=== PATIENT | male | born 1940 | race Caucasian/White ===

== ENCOUNTER 2020-01-03 21:21 | Inpatient (IN) | payer MEDICARE, SELFPAY ==
--- NOTE | ~2020-01-03 | XR_ITS ---
EXAMINATION: XR chest 1V portable DATE: 01/03/2020 23:28 INDICATION: Leukocytosis TECHNIQUE: frontal view of the chest was obtained. COMPARISON: Chest radiograph dated 01/21/2019 FINDINGS: Chronic elevation of the left hemidiaphragm. Lungs are clear with no focal airspace opacities, pleura l effusion, pulmonary edema or pneumothorax. Cardiomediastinal silhouette is normal. There are bridgi ng osteophytes at multiple levels in the spine, consistent with diffuse idiopathic skeletal hyperosto sis (DISH). IMPRESSION: 1. No acute cardiopulmonary disease. Reviewed, dictated and finalized at location A. AISER PERSONAL PROPERTY
--- NOTE | ~2020-01-03 | XR_ITS ---
XR thoracic spine 3V 01/05/2020 16:41 Indication: Mid-low back pain Procedure: 3 views of the thoracic spine Comparison: No prior studies for comparison. Findings: There is dextroscoliosis of the thoracic spine. There is mild-moderate thoracic spondylosis . No acute fracture or traumatic malalignment. No significant paraspinal soft tissue abnormality. Ped icles intact. Impression: 1: Mild thoracic spondylosis for age with dextroscoliosis. Reviewed, dictated and finalized at location A. TEGIC PLANNING SPECIALIST Impression: 1: Mild thoracic spondylosis for age with dextroscoliosis.
--- NOTE | ~2020-01-03 | CT_ITS ---
EXAMINATION: CT thoracic lumbar wo con EXAM DATE: 01/06/2020 16:03 INDICATION: Thoracolumbar pain. TECHNIQUE: Spiral CT thoracic lumbar wo con was performed without contrast. Axial, coronal and sagi ttal images thoracic spine were reviewed. Axial, coronal and sagittal images of the lumbar spine were reviewed. The dose-length product (DLP) for this examination was 2167.42 mGy-cm. The exposure was tailored according to patient size (auto mA exposure control), and iterative reconstruction (ASIR) wa s used as additional dose reduction technique. There is no prior study for comparison. FINDINGS: Patient has lower thoracic diffuse idiopathic skeletal hyperostosis (DISH). There is mild spine curvature which could be positional. There are no acute fractures identified. There are no bon y erosions identified. Region of vague sclerosis in the left iliac crest is unchanged correlating to a CT abdomen pelvis from 2016. Paraspinal soft tissue is unremarkable. There is no spondylolysis. The thoracolumbar vertebral bodies are aligned. Moderate to severe right T5-6 and T4-5 neural foraminal stenosis. Mild to moderate lumbar neural foraminal stenosis. No spondylolysis. Thoracic and lumbar ce ntral canal appears widely patent. There is moderate to severe facet arthropathy at L4-5 and L5-S1. O therwise relatively mild thoracal lumbar facet arthropathy. IMPRESSION: 1. No acute thoracolumbar findings. 2. Diffuse idiopathic skeletal hyperostosis. 3. T4-5 and 5-6 moderate to severe right neural foraminal stenosis, most narrowed levels. 4. Moderate to severe lower lumbar facet arthropathy. Reviewed, dictated and finalized at location A. GER TRAINING IMPRESSION: 1. No acute thoracolumbar findings. 2. Diffuse idiopathic skeletal hyperostosis. 3. T4-5 and 5-6 moderate to severe right neural foraminal stenosis, most narro wed levels. 4. Moderate to severe lower lumbar facet arthropathy.
--- NOTE | ~2020-01-03 | XR_ITS ---
EXAMINATION: XR abdomen/kub 1V DATE: 01/03/2020 23:28 INDICATION: Back pain and hematuria TECHNIQUE: A supine view of the abdomen on 2 radiographs was obtained. COMPARISON: CT dated 01/03/2020 FINDINGS: Normal bowel gas pattern with no dilated bowel to suggest obstruction. Multiple calcified gallstones in the right upper quadrant. Multiple phleboliths in the pelvis. No evident urolithiasis. Elevation o f the left hemidiaphragm. Visualized lung bases are clear. Severe lower lumbar facet osteoarthritis. IMPRESSION: 1. Cholelithiasis. Reviewed, dictated and finalized at location A. H HAND IMPRESSION: 1. Cholelithiasis.
--- NOTE | ~2020-01-03 | XR_ITS ---
XR lumbar spine 2-3V 01/05/2020 16:41 Indication: Low back pain Procedure: 3 views lumbar spine Comparison: No prior studies for comparison. Findings: Mild levocurvature of the lumbar spine. Osteopenia. There is loss of disc height at L5-S1. There is facet hypertrophy at L4-5 and L5-S1. There is grade 1 degenerative spondylolisthesis at L4-5 . No acute fracture or traumatic malalignment. Pedicles intact. Impression: 1: Moderate lumbar spondylosis. Reviewed, dictated and finalized at location A. RENTAL CLERK Impression: 1: Moderate lumbar spondylosis.
--- NOTE | ~2020-01-03 | CT_ITS ---
EXAMINATION: CT abdomen pelvis wo con DATE: 01/03/2020 23:22 INDICATION: Back pain and hematuria. TECHNIQUE: Computed tomography (CT) of the abdomen and pelvis was performed without intravenous contr ast. Automated exposure control and iterative reconstruction technique were employed. The dose-length product was 674.05 mGy-cm. COMPARISON: 11/15/2016 FINDINGS: Minimal dependent atelectasis in the lingula and bilateral lower lobes. Heart size is normal. Atheros clerotic coronary artery calcifications. Aortic valve calcific lesion. No pericardial or pleural effu rohan. Bilateral gynecomastia. Small sliding-type hiatal hernia. Liver, spleen, pancreas, left kidney and bilateral adrenal glands are normal. Several calcified gallstones in the dependent aspect of the normal-appearing gallbladder. No pericholecystic inflammatory stranding to suggest acute cholecystiti s. Multiple right renal cysts, the largest measuring 4.7 cm. Prominent diverticulosis along the desce nding and sigmoid colon without adjacent inflammatory change to suggest diverticulitis. Small bowel a nd appendix are normal. Prominent wall thickening within the partially decompressed bladder. No free intraperitoneal gas or fluid. Multiple phleboliths in the pelvis. No pathologically enlarged abdomina l or pelvic lymphadenopathy. Mild scattered degenerative skeletal changes. There are bridging osteoph ytes at multiple levels in the spine, consistent with diffuse idiopathic skeletal hyperostosis (DISH) . IMPRESSION: 1. Prominent bladder wall thickening although evaluation is limited by incomplete distention and lack of intravenous contrast as likely related to cystitis which could be either acute or chronic. Differ ential would also include less likely malignancy. 2. Cholelithiasis. 3. Diverticulosis. 4. Small sliding-type hiatal hernia. Reviewed, dictated and finalized at location A. POLLUTION SPECIALIST IMPRESSION: 1. Prominent bladder wall thickening although evaluation is limited by incomple te distention and lack of intravenous contrast as likely related to cystitis wh ich could be either acute or chronic. Differential would also include less like ly malignancy. 2. Cholelithiasis. 3. Diverticulosis. 4. Small sliding-type hiatal hernia.
[2020-01-03 21:21] VITALS: BP 153/87; PULSE 91; RESP 18; TEMP 37.3; O2SAT 95
--- NOTE | 2020-01-03 21:24 | ED.BACK ---
HPI - Back Pain/Injury General Chief Complaint: Back Pain/Injury Stated Complaint: back pain Time Seen by Provider: 01/03/20 21:23 Source: patient and family Mode of arrival: EMS Limitations: dementia History of Present Illness HPI Narrative: The pt is an 79 y/o male who presents to the ED, via EMS, c/o lower back pain onset today. Pt's family states that pt has a PMHx of chronic back pain, and was receiving shots and medications for some time. She states that the pt only uses Tylenol now. She states that the pt has experienced some burning urination as well, as well as that the pt experienced similar symptoms with a UTI. Pt's notes that the pt has experienced some ABD bloating today. The pt denies N/V, ABD pain, and fever. His notes that the pt has a PMHx of urinary incontinence, but states that the pt has begun to experience fecal incontinence over the last 4-5 months. She notes that the pt has a PMHx of sepsis, UTI, NC, and dementia. The HPI is limited due to dementia. MD elicited complaint: back pain Pertinent past history: prior back pain (Chronic back pain) Similar Symptoms Previously: Yes Location: lumbar spine (Lower back) Associated symptoms: fecal incontinence (Onset 4-5 months ago, per pt's family), dysuria (Burning urination (Per pt's family)) and other (ABD bloating (Per pt's family)) Related Data Home Medications Medication Instructions Recorded Confirmed aspirin [Aspir-Low] 01/03/20 metoprolol succinate 25 mg PO DAILY 01/03/20 rosuvastatin [Crestor] 10 mg PO DAILY 01/03/20 ticagrelor [Brilinta] 90 mg PO Q12H 01/03/20 Allergies Allergy/AdvReac Type Severity Reaction Status Date / Time clopidogrel Allergy Severe HIVES Verified 11/14/16 22:43 Penicillins Allergy Unknown Verified 11/14/16 22:43 Review of Systems Review of Systems: ROS unobtainable: other (ROS limited due to dementia.) Constitutional: Constitutional: Denies fever(s) Gastrointestinal: Gastrointestinal: Denies abdominal pain, Reports bloating (Per pt's family), Reports fecal incontinence (Onset 4-5 months ago, per pt's family), Denies nausea and Denies vomiting Genitourinary: Genitourinary: Reports dysuria (Burning urination (Per pt's family)) Musculoskeletal: Musculoskeletal: Reports back pain (Lower) PMFSH Past Medical History Medical History (Updated 01/04/20 @ 00:48 by Leonora Uribe MD) Anxiety Arthritis Bilateral cataracts CAD (coronary artery disease) Chronic back pain Dementia GERD (gastroesophageal reflux disease) HTN (hypertension) Myocardial infarction Sepsis Urinary incontinence UTI (urinary tract infection) Surgical History Surgical History (Updated 01/03/20 @ 21:34 by Gurmeet Carmichael) Hx of cardiac cath S/P coronary artery stent placement x3 Social History Social History (Updated 01/03/20 @ 21:34 by Gurmeet Carmichael) Smoking status: Never smoker Gender identity (if verbalized by the patient): Male Exam Narrative: Exam Narrative: GENERAL: Well-appearing, well-nourished, and in no acute distress. HEAD: Normocephalic, atraumatic EYES: PERRLA and EOMI, conjunctiva clear without discharge THROAT:Mucous membranes moist, NECK: Supple, without lymphadenopathy or mass RESPIRATORY: No respiratory distress, Airway patent, Respirations non-labored, Clear to auscultation without rales, rhonchi or wheeze HEART: Regular rate and rhythm. No murmur heard. Normal peripheral pulses. ABDOMEN: Soft, nontender, nondistended, normal active bowel sounds. No masses. No rebound or guarding, No organomegaly. EXTREMITIES: No edema, able to move all extremities, can bend both legs without difficulty or pain . But only able to lift off bed slightly SKIN: Warm, dry, normal color without rash NEURO: Alert and oriented x person, place and month. CN 2-12 grossly intact. No focal deficits. PSYCH: Normal mood and affect. Course Reevaluation(s) Reevaluation #1: Patient lives at home with
[2020-01-03 21:46] LABS: Basophils Percent Auto 0.2 % (0.2-1.2); Eosinophils Percent Auto 0.1 % (0-4.4); Hematocrit 46.5 % (42.0-52.0); Hemoglobin 15.3 g/dL (14.0-18.0); Immature Granulocyte Absolute 0.08 K/mm3 (0.00-0.031); Immature Granulocyte Percent A 0.5 % (0-0.5); Lymphocytes Absolute Auto 0.88 K/mm3 (0.9-3.2); Lymphocytes Percent Auto 5.5 % (18.3-44.2); Mean Corpuscular HGB Conc 32.9 g/dl (32-36); Mean Corpuscular Hemoglobin 29.7 pg (26-34); Mean Corpuscular Volume 90.3 fl (80-100); Mean Platelet Volume 9.7 fl (7.4-10.4); Monocytes Absolute Auto 1.3 K/mm3 (0.1-0.6); Monocytes Percent Auto 8.1 % (2.6-8.5); Neutrophils Absolute Auto 13.8 K/mm3 (1.3-6.7); Neutrophils Percent Auto 85.6 % (45.5-73.1); Platelet Count Result 279 k/mm3 (150-375); Red Blood Count 5.15 M/mm3 (4.6-6.20); Red Cell Distribution Width 13.2 % (11.5-14.5); White Blood Count 16.1 K/mm3 (4.5-10.0)
[2020-01-03 21:57] LABS: Blood Urea Nitrogen 9 mg/dL (9-20); Calcium 9.1 mg/dL (8.4-10.2); Carbon Dioxide 27 mmol/L (22-30); Chloride 97 mmol/L (98-107); Estimated Glomerular Filt Rate > 60; Glucose 127 mg/dL (75-110); Sodium 137 mmol/L (137-145)
[2020-01-03 22:46] VITALS: BP 159/94; PULSE 88; RESP 18; O2SAT 97
[2020-01-03 22:57] LABS: Add Urine Microscopic? YES; Appearance Urine Cloudy (Clear); Bilirubin Urine Negative (Negative); Blood Urine 3+ (Negative); Color Urine Yellow (Yellow); Glucose Urine UA Negative (Negative); Ketones Urine Negative (Negative); Leukocyte Esterase Ur 1+ LEU/UL (Negative); Nitrate Urine Negative (Negative); Protein Urine Negative (Negative); RBC Urine 21-50 /hpf (0-2); Specific Grav Ur 1.013 (1.001-1.035); Urobilinogen Urine Negative mg/dL (<2.0); WBC Urine 51-75 /hpf
--- NOTE | 2020-01-03 23:14 | PC.NURSE ---
Pt to CT at this time.
[2020-01-04] MEDS: ONDANSETRON INJ 4 MG/2 ML VIAL IV PUSH (00:54)
[2020-01-04] MEDS: MORPHINE SULFATE 2 MG/ML INJ IV PUSH (00:56)
[2020-01-04 00:57] VITALS: BP 126/58; PULSE 87; RESP 16; O2SAT 98
--- NOTE | 2020-01-04 01:36 | ADMGEN ---
This patient, Tate Atkins Jr., was admitted to 2 Medical Room 260-01. Patient/family oriented to hospital policies and general routines including ID bracelet, bed and alarms, visiting hours, pain management, procedures, bathroom and other care routines, personal items, smoking policy, room service/diet, and visiting hours. Valuables list has been completed. Information on how to activate the Rapid Response Team has been discussed. Patient/Family are encouraged to report perceived risks to care and to ask questions if they do not understand what they are told or what they should do.
[2020-01-04 01:40] VITALS: BMI 29.2
[2020-01-04 01:41] VITALS: BP 124/48; PULSE 85; RESP 18; TEMP 36.6; O2SAT 94
[2020-01-04 06:00] VITALS: BP 120/58; PULSE 74; RESP 18; TEMP 36.3; O2SAT 97
[2020-01-04 08:00] VITALS: PULSE 74; RESP 18; O2SAT 97
[2020-01-04] MEDS: TICAGRELOR 90 MG TABLET PO ×2 (10:04→21:29)
[2020-01-04] MEDS: METOPROLOL SUCCINATE EXT REL 25 MG TABCR PO (10:04)
[2020-01-04] MEDS: ASPIRIN 81 MG ENTERIC TABLET PO (10:05)
--- NOTE | 2020-01-04 10:11 | PM.IMHP ---
H&P: HPI History of Present Illness Chief complaint: weakness, dysuria Narrative: Date of Service 01/04/20 This supervising physician for this history and physical is Dr. Fox. Tate Atkins Jr. is an 79 year old male with past medical history of coronary artery disease with MD January 2019, hypertension, osteoarthritis with chronic lower back pain, dementia with chronic urinary and fecal incontinence who presented to the ED for evaluation of back pain. He does not offer much history due to his dementia and much of this history is obtained from his at the bedside. She knows that he has had low back pain for years and used to receive injections, recently had only been using Tylenol for pain relief. She noted that his back pain became worse in the last 3 days and he was unable to stand up out of a chair to use his walker, so EMS was activated. She notes that he has been incontinent of urine for quite some time but most recently has been complaining of burning with urination. She denies noticing any blood in his urine. He has been incontinent of stool for at least 4 months per the . He denies any numbness or tingling to any extremities. He denies any chest pain, shortness of breath, or calf tenderness. He reports some nasal congestion and productive cough in the last week. He denies any nausea, vomiting, constipation, diarrhea, hematochezia, melena, or hematemesis. reports no fevers at home. Routine labs are grossly normal aside from leukocytosis with WBC 16,000. Urinalysis shows 51-75 WBC, 1+ leukocyte esterase, 21-50 RBC. Urine cultures were obtained and he was started on IV Rocephin in the ED. CT abdomen/pelvis shows prominent bladder wall thickening which could be consistent with cystitis. The patient is admitted to observation for suspected urinary tract infection and generalized weakness. His is unsure if it is safe for her to care for him at home at this time. Review of Systems Review of Systems: Narrative: Review of systems is limited due to his dementia, although he offers no complaints other than lower back pain with movement. 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 Sepsis Urinary incontinence UTI (urinary tract infection) Surgical History Surgical History Hx of cardiac cath S/P coronary artery stent placement Emergent cardiac catheterization by Dr Rogel 01/21/19 with 2 stents to right coronary artery. Family History Family History (Updated 01/04/20 @ 10:57 by Danielle Maki PA-C) Father CHF (congestive heart failure) Sibling Acute myocardial infarction Breast cancer Mother History of blood clots Grandparent Cerebrovascular accident Social History Social History (Updated 01/04/20 @ 10:59 by Danielle Maki PA-C) Social History: Mr. 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 He denies alcohol use. Never smoker, no other substance use. He mostly uses a walker to ambulate at home. His primary care provider is Dr Tate Garcia in [facility] and he follows with Dr Rogel as well. He wishes to be full code status. Smoking status: Never smoker Alcohol intake: never Substance use: never Gender identity (if verbalized by the patient): Male Spiritual care concerns: No Agree to blood products: No Meds Home Medications and Allergies Home Medications Medication Instructions Recorded Confirmed Type aspirin [Aspir-Low] 81 mg PO DAILY 01/03/20 01/04/20 History metoprolol succinate 25 mg PO DAILY 01/03/20 01/04/20 Histor
[2020-01-04 10:55] LABS: Hemoglobin 13.6 g/dL (14.0-18.0); Mean Corpuscular HGB Conc 33.2 g/dl (32-36); Mean Corpuscular Volume 90.3 fl (80-100); Mean Platelet Volume 10.1 fl (7.4-10.4); Platelet Count Result 234 k/mm3 (150-375); Red Blood Count 4.54 M/mm3 (4.6-6.20); Red Cell Distribution Width 13.4 % (11.5-14.5); White Blood Count 15.8 K/mm3 (4.5-10.0)
[2020-01-04 11:09] LABS: Alanine Aminotransferase 13 U/L (4-50); Albumin Level 3.6 g/dL (3.5-5.1); Alkaline Phosphatase 67 U/L (38-126); Aspartate Amino Transferase 22 U/L (17-59); Bilirubin,Total 0.6 mg/dL (0.2-1.3); Blood Urea Nitrogen 8 mg/dL (9-20); Calcium 8.6 mg/dL (8.4-10.2); Carbon Dioxide 29 mmol/L (22-30); Chloride 97 mmol/L (98-107); Estimated CRCL calculation 64 ml/min; Estimated Glomerular Filt Rate > 60; Glucose 123 mg/dL (75-110); Magnesium 2.1 mg/dL (1.6-2.3); Phosphorus 2.6 mg/dL (2.5-4.5); Potassium 3.9 mmol/L (3.4-5.0); Sodium 134 mmol/L (137-145)
[2020-01-04 16:00] VITALS: BP 128/51; PULSE 78; RESP 16; TEMP 36.7; O2SAT 97
[2020-01-04] MEDS: ROSUVASTATIN 10 MG TABLET PO (16:45)
[2020-01-04 21:48] VITALS: BP 101/37; PULSE 72; RESP 16; TEMP 37.2; O2SAT 100
[2020-01-05 05:24] LABS: Basophils Percent Auto 0.3 % (0.2-1.2); Eosinophils Absolute Auto 0.1 K/mm3 (0-0.3); Eosinophils Percent Auto 0.5 % (0-4.4); Hematocrit 43.3 % (42.0-52.0); Hemoglobin 13.5 g/dL (14.0-18.0); Immature Granulocyte Absolute 0.04 K/mm3 (0.00-0.031); Immature Granulocyte Percent A 0.4 % (0-0.5); Lymphocytes Absolute Auto 1.22 K/mm3 (0.9-3.2); Mean Corpuscular HGB Conc 31.2 g/dl (32-36); Mean Corpuscular Hemoglobin 29.9 pg (26-34); Mean Platelet Volume 10.1 fl (7.4-10.4); Monocytes Absolute Auto 1.1 K/mm3 (0.1-0.6); Monocytes Percent Auto 9.5 % (2.6-8.5); Neutrophils Absolute Auto 8.7 K/mm3 (1.3-6.7); Neutrophils Percent Auto 78.3 % (45.5-73.1); Platelet Count Result 201 k/mm3 (150-375); Red Blood Count 4.51 M/mm3 (4.6-6.20); Red Cell Distribution Width 13.3 % (11.5-14.5); White Blood Count 11.1 K/mm3 (4.5-10.0)
[2020-01-05 05:57] VITALS: BP 127/59; PULSE 70; RESP 16; TEMP 36.9; O2SAT 96
[2020-01-05 07:38] LABS: Blood Urea Nitrogen 8 mg/dL (9-20); Calcium 8.6 mg/dL (8.4-10.2); Carbon Dioxide 27 mmol/L (22-30); Chloride 96 mmol/L (98-107); Estimated CRCL calculation 64 ml/min; Estimated Glomerular Filt Rate > 60; Glucose 113 mg/dL (75-110); Magnesium 2.2 mg/dL (1.6-2.3); Potassium 3.9 mmol/L (3.4-5.0); Sodium 135 mmol/L (137-145)
[2020-01-05 10:04] VITALS: PULSE 92
[2020-01-05] MEDS: ASPIRIN 81 MG ENTERIC TABLET PO (10:04)
[2020-01-05] MEDS: METOPROLOL SUCCINATE EXT REL 25 MG TABCR PO (10:04)
[2020-01-05] MEDS: TICAGRELOR 90 MG TABLET PO ×2 (10:05→22:13)
[2020-01-05 14:00] VITALS: BP 112/53; PULSE 72; RESP 18; TEMP 37.2; O2SAT 95
[2020-01-05] MEDS: polyethylene glycoL 3350 17 GM POWD.PACK PO (14:38)
[2020-01-05] MEDS: BISACODYL 5 MG TABLET EC PO (14:38)
--- NOTE | 2020-01-05 17:53 | PM.IMPN ---
Progress Note: A&P Assessment and Plan (1) Weakness: Code(s): R53.1 - Weakness Status: Acute Assessment and Plan: [place] to be secondary to age, deconditioning, back pain and acute infection. PT/OT. After long discussion with patient's , discharge dispo is [facility]. Awaiting authorization for [facility]. (2) UTI (urinary tract infection): Qualifiers: Urinary tract infection type: acute cystitis Hematuria presence: with hematuria Qualified Code(s): N30.01 - Acute cystitis with hematuria Code(s): N39.0 - Urinary tract infection, site not specified Status: Acute Assessment and Plan: Urine culture growing E coli. Continue IV rocephin (day 3) with sensitivities pending. Leukocytosis improved, afebrile. (3) Chronic back pain: Qualifiers: Back pain location: low back pain Back pain laterality: bilateral Sciatica presence: unspecified whether sciatica present Qualified Code(s): M54.5 - Low back pain; G89.29 - Other chronic pain Code(s): M54.9 - Dorsalgia, unspecified; G89.29 - Other chronic pain Status: Acute Assessment and Plan: Acute on chronic exacerbation of lower back pain. Continue tylenol as his notes he had trouble with narcotics in the past. XR of thoracic and lumbar spine shows moderate lumbar spondylosis, mild thoracic spondylosis with dextroscoliosis; no acute findings. No focal neurological symptoms. (4) CAD (coronary artery disease): Qualifiers: Coronary Disease-Associated Artery/Lesion type: [place] artery [place] vs. transplanted heart: [place] heart Associated angina: without angina Qualified Code(s): I25.10 - Atherosclerotic heart disease of [place] coronary artery without angina pectoris Code(s): I25.10 - Atherosclerotic heart disease of [place] coronary artery without angina pectoris Status: Chronic Assessment and Plan: With history of STEMI s/p 2 sents in 01/2019. Continue home metorpolol and brilinta. Follows with Dr Rogel. Stable, no chest pain. (5) HTN (hypertension): Qualifiers: Hypertension type: essential hypertension Qualified Code(s): I10 - Essential (primary) hypertension Code(s): I10 - Essential (primary) hypertension Status: Chronic Assessment and Plan: Stable, continue home metoprolol and monitor BP. (6) Dementia: Qualifiers: Dementia type: unspecified type Dementia behavioral disturbance: without behavioral disturbance Qualified Code(s): F03.90 - Unspecified dementia without behavioral disturbance Code(s): F03.90 - Unspecified dementia without behavioral disturbance Status: Chronic Assessment and Plan: Appears to be at his baseline, stable. at the bedside. Subjective Date/time seen: 01/05/20 1400 Interval history: Mr. Atkins is an 79yo M admitted for UTI and weakness. He notes significant back pain when trying to get out of chair with PT today. Per RN, he was hollering out while attempting to stand. PT notes it took 10 attempts to get him out of the chair max assist. Detailed discussion was held with patient and his at bedside regarding his safety and discharge planning. His is hesitant to go to SNF but it was discussed that it is not felt he would be safe to discharge home. She agrees that she would not be able to lift him from a chair. Review of systems is limited due to the patient's dementia however he offers no complaints. His notes he is still having burning with urination. He has been incontinent of urine for years and incontinent of stool over the last 4-5 months, per the . Exam Narrative: Exam Narrative: General: Male resting supine in bed in no acute distress. HEENT: Normocephalic, atraumatic, EOMI, PE
--- NOTE | 2020-01-05 18:00 | PC.NURSE ---
Patient states he is having burning and discomfort with urination. requesting something for pain. Called Dr. Fox and discussed with him. Orders received for prn Tylenol.
[2020-01-05] MEDS: ROSUVASTATIN 10 MG TABLET PO (18:14)
[2020-01-05] MEDS: ACETAMINOPHEN 325 MG TABLET 650 MG PO (18:35)
[2020-01-05 22:11] VITALS: BP 137/61; PULSE 82; RESP 16; TEMP 36.5; O2SAT 96
[2020-01-06 05:50] LABS: Hematocrit 39.4 % (42.0-52.0); Mean Corpuscular Hemoglobin 29.5 pg (26-34); Mean Corpuscular Volume 89.5 fl (80-100); Platelet Count Result 238 k/mm3 (150-375); White Blood Count 8.6 K/mm3 (4.5-10.0)
[2020-01-06 06:00] LABS: Blood Urea Nitrogen 10 mg/dL (9-20); Calcium 8.5 mg/dL (8.4-10.2); Carbon Dioxide 30 mmol/L (22-30); Chloride 97 mmol/L (98-107); Estimated CRCL calculation 52 ml/min; Estimated Glomerular Filt Rate > 60; Glucose 115 mg/dL (75-110); Potassium 3.8 mmol/L (3.4-5.0); Sodium 134 mmol/L (137-145)
[2020-01-06 06:07] VITALS: BP 139/72; PULSE 95; RESP 18; TEMP 36.2; O2SAT 91
[2020-01-06 08:53] VITALS: PULSE 95
[2020-01-06] MEDS: ASPIRIN 81 MG ENTERIC TABLET PO (08:53)
[2020-01-06] MEDS: TICAGRELOR 90 MG TABLET PO ×2 (08:53→21:41)
[2020-01-06] MEDS: METOPROLOL SUCCINATE EXT REL 25 MG TABCR PO (08:53)
[2020-01-06] MEDS: polyethylene glycoL 3350 17 GM POWD.PACK PO (08:54)
[2020-01-06] MEDS: BISACODYL 5 MG TABLET EC PO (08:57)
[2020-01-06] MEDS: ACETAMINOPHEN 325 MG TABLET 650 MG PO (09:23)
[2020-01-06 10:13] VITALS: BP 127/63; PULSE 71; RESP 17; TEMP 37.1; O2SAT 95
[2020-01-06 14:00] VITALS: BP 171/68; PULSE 70; RESP 18; TEMP 36.4; O2SAT 99
--- NOTE | 2020-01-06 14:54 | PCOTNOTE ---
Attempted to see patient this pm. Patient was in bed upon entry and reported of 7/10 pain in his back. of patient reports that patient seems very tired and fatigued at this time, and states that he was experiencing a lot of confusion last night. and patient both seemed willing to continue OT treatment tomorrow, however refuse OT session at this time.
--- NOTE | 2020-01-06 14:57 | PM.IMPN ---
Progress Note: A&P Assessment and Plan (1) Weakness: Code(s): R53.1 - Weakness Status: Acute Assessment and Plan: -------[place] to be secondary to age, deconditioning, back pain and acute infection. PT/OT. Plan to discharge patient to [facility] once he gets a little stronger and pain is under control. Pt agreed to sit in he chair for dinner. Hopefully in the next 1-2 days (2) UTI (urinary tract infection): Qualifiers: Urinary tract infection type: acute cystitis Hematuria presence: with hematuria Qualified Code(s): N30.01 - Acute cystitis with hematuria Code(s): N39.0 - Urinary tract infection, site not specified Status: Acute Assessment and Plan: ------Urine culture growing E coli. Continue IV rocephin (day 4) with sensitivities pending. Leukocytosis improved, afebrile. He is still having pain when he urinates so I will add Pyridium x2 days. No flank pain at this time (3) Chronic back pain: Qualifiers: Back pain location: low back pain Back pain laterality: bilateral Sciatica presence: unspecified whether sciatica present Qualified Code(s): M54.5 - Low back pain; G89.29 - Other chronic pain Code(s): M54.9 - Dorsalgia, unspecified; G89.29 - Other chronic pain Status: Acute Assessment and Plan: -------Acute on chronic exacerbation of lower back pain. On palpation it appears that his he has significant pain to the thoracic spine. X-ray reviewed. Because of his significant back pain and symptoms will order CT of the spine. Continue tylenol as his notes he had trouble with narcotics in the past. Straight leg raise normal. No pain to palpation to the lower spine. XR of thoracic and lumbar spine shows moderate lumbar spondylosis, mild thoracic spondylosis with dextroscoliosis; no acute findings. No focal neurological symptoms. (4) CAD (coronary artery disease): Qualifiers: Coronary Disease-Associated Artery/Lesion type: [place] artery [place] vs. transplanted heart: [place] heart Associated angina: without angina Qualified Code(s): I25.10 - Atherosclerotic heart disease of [place] coronary artery without angina pectoris Code(s): I25.10 - Atherosclerotic heart disease of [place] coronary artery without angina pectoris Status: Chronic Assessment and Plan: ------With history of STEMI s/p 2 sents in 01/2019. Continue home metorpolol and brilinta. Follows with Dr Rogel. Patient currently has a murmur and the is worried about this. Reassured her that he had a murmur back in January as well that was documented by the cardiology service. No signs and symptoms of passing out. (5) HTN (hypertension): Qualifiers: Hypertension type: essential hypertension Qualified Code(s): I10 - Essential (primary) hypertension Code(s): I10 - Essential (primary) hypertension Status: Chronic Assessment and Plan: ------Stable, continue home metoprolol and monitor BP. Last blood pressure 171/68 which is uncharacteristic of him. Will monitor serial blood pressures and adjust medications as needed. (6) Dementia: Qualifiers: Dementia type: unspecified type Dementia behavioral disturbance: without behavioral disturbance Qualified Code(s): F03.90 - Unspecified dementia without behavioral disturbance Code(s): F03.90 - Unspecified dementia without behavioral disturbance Status: Chronic Assessment and Plan: ------ states that he has never been formally diagnosed but she notices few times a week at night the patient will say odd things and has increased confusion. I spoke to the about following up with her primary care physician after he is well for a formal diagnosis and treatment plan. Subjective Date/time seen: 01/06/20 14:57 Interval history: Mr. Atkins is an 79yo M admitted for UTI and weakness. Pt is an 79-year-old male who was see
--- NOTE | 2020-01-06 15:08 | PC.NURSE ---
On 01/06/20, the student, Du Price, provided care and completed [facility] documentation on this patient. I have reviewed the student's documentation and agree with the findings.
[2020-01-06] MEDS: ROSUVASTATIN 10 MG TABLET PO (17:54)
[2020-01-06] MEDS: PHENAZOPYRIDINE HCL 100 MG TABLET 200 MG PO (17:54)
[2020-01-06 21:41] VITALS: BP 135/60; PULSE 65; RESP 16; TEMP 36.7; O2SAT 96
[2020-01-06 22:05] VITALS: BP 135/60; PULSE 65; RESP 16; TEMP 36.7; O2SAT 96
[2020-01-07 05:57] VITALS: BP 154/93; PULSE 65; RESP 16; TEMP 36.3; O2SAT 95
[2020-01-07 08:32] VITALS: PULSE 65
[2020-01-07] MEDS: polyethylene glycoL 3350 17 GM POWD.PACK PO (08:32)
[2020-01-07] MEDS: METOPROLOL SUCCINATE EXT REL 25 MG TABCR PO (08:32)
[2020-01-07] MEDS: TICAGRELOR 90 MG TABLET PO (08:33)
[2020-01-07] MEDS: ASPIRIN 81 MG ENTERIC TABLET PO (08:33)
[2020-01-07] MEDS: PHENAZOPYRIDINE HCL 100 MG TABLET 200 MG PO ×2 (08:33→11:51)
[2020-01-07 13:00] VITALS: BP 148/68; PULSE 88; RESP 18; TEMP 37; O2SAT 98
--- NOTE | 2020-01-07 14:33 | PM.DS ---
DS: Diagnosis Admitting Diagnosis Admitting Diagnosis: Pyuria Discharge Diagnosis (1) Weakness: Code(s): R53.1 - Weakness Status: Acute (2) UTI (urinary tract infection): Qualifiers: Urinary tract infection type: acute cystitis Hematuria presence: with hematuria Qualified Code(s): N30.01 - Acute cystitis with hematuria Code(s): N39.0 - Urinary tract infection, site not specified Status: Acute (3) Chronic back pain: Qualifiers: Back pain location: low back pain Back pain laterality: bilateral Sciatica presence: unspecified whether sciatica present Qualified Code(s): M54.5 - Low back pain; G89.29 - Other chronic pain Code(s): M54.9 - Dorsalgia, unspecified; G89.29 - Other chronic pain Status: Acute (4) CAD (coronary artery disease): Qualifiers: Coronary Disease-Associated Artery/Lesion type: [place] artery [place] vs. transplanted heart: [place] heart Associated angina: without angina Qualified Code(s): I25.10 - Atherosclerotic heart disease of [place] coronary artery without angina pectoris Code(s): I25.10 - Atherosclerotic heart disease of [place] coronary artery without angina pectoris Status: Chronic (5) HTN (hypertension): Qualifiers: Hypertension type: essential hypertension Qualified Code(s): I10 - Essential (primary) hypertension Code(s): I10 - Essential (primary) hypertension Status: Chronic (6) Dementia: Qualifiers: Dementia type: unspecified type Dementia behavioral disturbance: without behavioral disturbance Qualified Code(s): F03.90 - Unspecified dementia without behavioral disturbance Code(s): F03.90 - Unspecified dementia without behavioral disturbance Status: Chronic (7) Neural foraminal stenosis of thoracic spine: Code(s): M99.82 - Other biomechanical lesions of thoracic region Status: Acute DS: Summary Hospital Course Reason for hospitalization: Back pain, weakness and dysuria Hospital Course: Patient is an 79-year-old male who presented emergency room for chronic back pain, generalized weakness, and dysuria found to have UTI. Temperature slightly elevated 99.1, pulse 91, respiratory rate 18, blood pressure 153/87, pulse ox 95 on room air. Initial white blood cell count 16.1, hemoglobin 15.3, hematocrit 46.5, platelets 279. BMP within normal limits with the exception of random glucose 127. CT of the abdomen and pelvis showed: 1. Prominent bladder wall thickening although evaluation is limited by incomplete distention and lack of intravenous contrast as likely related to cystitis which could be either acute or chronic. Differential would also include less likely malignancy. 2. Cholelithiasis. 3. Diverticulosis. 4. Small sliding-type hiatal hernia. Chest x-ray normal. patient was admitted to the hospitalist service and started on ceftriaxone for his UTI which is sensitive. The patient's dysuria improved with treatment as did his leukocytosis. The patient had extensive back pain while hospitalized and a CT of his lumbar and thoracic spineShowed T4-5, 5-6 moderate to severe right neural foraminal stenosis and moderate to severe lower lumbar facet arthropathy. I talked to the patient and family about follow-up with a neurosurgeon or back surgeon since he has this chronic pain. The day of discharge he was utilizing Tylenol and heating pad and was doing just fine. He said his pain was much better and physical therapy said he was able to get out of bed without much pain. He no longer had the dysuria and although he felt weak, was getting stronger. He was afebrile, leukocytosis had resolved, and the patient was stronger. It was felt that he was ready to be discharged to SNF with oral antibiotics. The patient and family were educated about the worrisome signs and symptoms come back to emergency room for was discharged stable condition. Status at Discharge Overall stat
== END 2020-01-07 16:17 | DRG 690 ==
LOC: ANHED 23:36 → ANH2MED 01-04 00:46
PROVIDERS: Physician Assistant; Admitting Provider Family Medicine; Emergency Provider General Practice; Visit Provider Physician Assistant
DX: N30.01 Acute cystitis with hematuria (principal); I25.10 Atherosclerotic heart disease of native coronary artery without angina pectoris; I25.2 Old myocardial infarction; I10 Essential (primary) hypertension; M19.90 Unspecified osteoarthritis, unspecified site; M54.5 Low back pain; F03.90 Unspecified dementia, unspecified severity, without behavioral disturbance, psychotic disturbance, mood disturbance, and anxiety; R32 Unspecified urinary incontinence; R15.9 Full incontinence of feces; F41.9 Anxiety disorder, unspecified; H26.9 Unspecified cataract; M99.82 Other biomechanical lesions of thoracic region
CPT/HCPCS: 36415; 51701; 71045; 72072; 72100; 72128; 72131; 74018; 74176; 80048; 80053; 81001; 83735; 84100; 85025; 85027; 87077; 87086; 87088; 87186; 96365; 96367; 96375; 97110; 97162; 97167; 97530; 97535; 99285; A9270; G0378; J0131; J0696; J2270; J2405

== ENCOUNTER 2021-02-13 14:12 | Emergency (ER) | payer MEDICARE, SELFPAY ==
--- NOTE | ~2021-02-13 | CT_ITS ---
EXAMINATION: CT brain wo con EXAM DATE: 02/13/2021 15:07 INDICATION: Fall, confusion. Mid and low back pain. TECHNIQUE: Spiral CT of the head was performed without contrast. Axial, coronal and sagittal images were reviewed. The dose-length product (DLP) for this examination was 605.33 mGy-cm. The exposure w as tailored according to patient size, and iterative reconstruction (ASIR) was used as additional dos e reduction technique. There is no prior study for comparison. FINDINGS: There is no acute intraparenchymal hemorrhage. No evidence of intraparenchymal brain mass lesion. No evidence of acute infarction. Please note that initial head CT has limited sensitivity f or small or acute infarctions. There is moderate periventricular and subcortical hypodensity, nonspec ific but probably related to small vessel ischemic disease. There is moderate prominence of the sul ci and ventricles related to cerebral atrophy. There is intracranial carotid arteriosclerosis. The re are no extra-axial collections. There is no mass effect or midline shift. The orbits are unremar kable. Soft tissue is unremarkable. The visualized sinuses and mastoid air cells are well aerated. IMPRESSION: 1. No acute intracranial findings. 2. Chronic age related findings. Reviewed, dictated and finalized at location A.
--- NOTE | ~2021-02-13 | CT_ITS ---
EXAMINATION: CT thoracic lumbar wo con EXAM DATE: 02/13/2021 15:07 INDICATION: Fall, mid and low back pain. TECHNIQUE: Spiral CT thoracolumbar spine was performed without contrast. Axial, coronal and sagittal images of the thoracic spine were reviewed. Axial, coronal and sagittal images of the lumbar spine we re reviewed. The dose-length product (DLP) for this examination was 2357.72 mGy-cm. The exposure was tailored according to patient size (auto mA exposure control), and iterative reconstruction (ASIR) w as used as additional dose reduction technique. Comparison is made to prior examination from 0. FINDINGS: Patient has lower thoracic diffuse idiopathic skeletal hyperostosis (DISH). There is mil d spine curvature which could be positional. There are no acute fractures identified. There are no kendra ny erosions identified. Region of vague sclerosis in the left iliac crest is unchanged, benign findin g. There is no spondylolysis. The thoracolumbar vertebral bodies are aligned. Moderate to severe rig ht T5-6 and T4-5 neural foraminal stenosis. Mild to moderate lumbar neural foraminal stenosis. No spo ndylolysis. Thoracic and lumbar central canal appears widely patent. There is moderate to severe face t arthropathy at L4-5 and L5-S1. Otherwise relatively mild thoracal lumbar facet arthropathy. Choleli thiasis. Right renal cysts. Distended bladder with trabecular wall, probably chronic cystitis. Extens jered sigmoid diverticulosis. There is no significant interval change. IMPRESSION: 1. No acute thoracolumbar findings. 2. Diffuse idiopathic skeletal hyperostosis. 3. Thoracolumbar spondylosis as above. 4. Chronic incidental findings. Reviewed, dictated and finalized at location A.
[2021-02-13 14:10] VITALS: BP 124/60; PULSE 62; RESP 19; TEMP 36.4; O2SAT 97
--- NOTE | 2021-02-13 14:29 | ECG_ITS ---
Measurements Intervals [place] Rate: 61 P: 55 CA: 228 QRS: 19 QRSD: 150 T: -8 QT: 430 QTc: 434 Interpretive Statements SINUS RHYTHM WITH FIRST DEGREE AV BLOCK RIGHT BUNDLE BRANCH BLOCK INFERIOR INFARCT, AGE INDETERMINATE BASELINE ARTIFACT- I, II, III, AVR, AVL, AVF ABNORMAL ECG Electronically Signed On 02-13-2021 16:31:59 CDT by Marin Valentin D.O.
--- NOTE | 2021-02-13 14:50 | ED.FALL ---
HPI - Fall General Chief Complaint: Fall Stated Complaint: fall/left side pain Time Seen by Provider: 02/13/21 14:43 History of Present Illness HPI Narrative: Found done this morning after unwitnessed fall. No complaints initially. Later began complaining of low back pain. Currently in rehab following hospitalization. His says that he used to complain of similar pain when he had a UTI. History limited by dementia Related Data Home Medications Medication Instructions Recorded Confirmed Brilinta 90 mg PO Q12H 01/03/20 01/04/20 aspirin [Aspir-Low] 81 mg PO DAILY 01/03/20 01/04/20 metoprolol succinate 25 mg PO DAILY 01/03/20 01/04/20 rosuvastatin [Crestor] 10 mg PO DAILY 01/03/20 01/04/20 alprazolam 02/13/21 atorvastatin 02/13/21 buspirone mg 02/13/21 citalopram mg 02/13/21 cyanocobalamin (vitamin B-12) 500 mcg PO DAILY 02/13/21 donepezil 5 mg PO HS 02/13/21 ergocalciferol (vitamin D2) 02/13/21 [Vitamin D2] Allergies Allergy/AdvReac Type Severity Reaction Status Date / Time clopidogrel Allergy Severe HIVES Verified 11/14/16 22:43 Penicillins Allergy Unknown Unknown Verified 02/13/21 14:47 amoxicillin [From Augmentin] Allergy Unknown Verified 02/13/21 14:47 clavulanic acid Allergy Unknown Verified 02/13/21 14:47 [From Augmentin] Review of Systems Review of Systems: ROS unobtainable: Yes unobtainable due to mental status [facility] Past Medical History Medical History (Updated 02/13/21 @ 16:10 by Uriel Prado MD) Anxiety Arthritis Bilateral cataracts CAD (coronary artery disease) Chronic back pain Dementia GERD (gastroesophageal reflux disease) HTN (hypertension) Myocardial infarction 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 Sepsis Urinary incontinence UTI (urinary tract infection) Surgical History Surgical History Hx of cardiac cath S/P coronary artery stent placement Emergent cardiac catheterization by Dr Rogel 01/21/19 with 2 stents to right coronary artery. Family History Family History Father CHF (congestive heart failure) Sibling Acute myocardial infarction Breast cancer Mother History of blood clots Grandparent Cerebrovascular accident Social History Social History Social History: Mr. 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 He denies alcohol use. Never smoker, no other substance use. He mostly uses a walker to ambulate at home. His primary care provider is Dr Tate Garcia in [facility] and he follows with Dr Rogel as well. He wishes to be full code status. Smoking status: Never smoker Alcohol intake: never Substance use: never Gender identity (if verbalized by the patient): Male Spiritual care concerns: No Agree to blood products: No Exam Const: General: no acute distress, alert and confusion HENMT: Head: normal to inspection, no contusions and no lacerations Eyes: Conjunctivae: conjunctivae normal Pupils: Equal, round and reactive pupils present EOM: EOMs intact bilaterally Resp: Effort & Inspection: normal respiratory effort Auscultation: clear to auscultation bilaterally Cardio: Rate: regular rate Rhythm: regular rhythm GI: GI Palp: Yes Soft to palpation and No Tenderness to palpation present (GI) Back/Spine/Pelvis: Other: Midline tenderness in thoracic and lumbar spine Skin: General skin exam: normal color Neuro: General: patient oriented x3, moves all extremities, no focal motor deficits and CN's II-XI intact bilaterally Speech: normal speech Gait exam (Neuro): Normal gait present Extrem: General: normal to inspection Course Vital Signs Vital signs: Vital Signs Temperature 36.4 C L 02/13/21 14:10 Pulse Rate 62 02/13/21 14:10
--- NOTE | 2021-02-13 15:02 | PC.NURSE ---
Pt to CT via stretcher at this time.
[2021-02-13 15:36] LABS: Basophils Percent Auto 0.3 % (0.2-1.2); Eosinophils Absolute Auto 0.1 K/mm3 (0-0.3); Eosinophils Percent Auto 0.7 % (0-4.4); Hematocrit 46.3 % (42.0-52.0); Immature Granulocyte Absolute 0.02 K/mm3 (0.00-0.031); Immature Granulocyte Percent A 0.3 % (0-0.5); Lymphocytes Absolute Auto 1.48 K/mm3 (0.9-3.2); Lymphocytes Percent Auto 21.2 % (18.3-44.2); Mean Corpuscular HGB Conc 32.4 g/dl (32-36); Mean Corpuscular Hemoglobin 29.7 pg (26-34); Mean Corpuscular Volume 91.7 fl (80-100); Mean Platelet Volume 10.7 fl (7.4-10.4); Monocytes Absolute Auto 0.8 K/mm3 (0.1-0.6); Monocytes Percent Auto 12.1 % (2.6-8.5); Neutrophils Absolute Auto 4.6 K/mm3 (1.3-6.7); Neutrophils Percent Auto 65.4 % (45.5-73.1); Platelet Count Result 306 k/mm3 (150-375); Red Blood Count 5.05 M/mm3 (4.6-6.20); Red Cell Distribution Width 13.4 % (11.5-14.5)
[2021-02-13 15:48] LABS: Alanine Aminotransferase 18 U/L (4-50); Alkaline Phosphatase 70 U/L (38-126); Anion Gap 3 mmol/L (8-16); Aspartate Amino Transferase 24 U/L (17-59); Bilirubin,Total 0.5 mg/dL (0.2-1.3); Blood Urea Nitrogen 10 mg/dL (9-20); Calcium 9.3 mg/dL (8.4-10.2); Carbon Dioxide 34 mmol/L (22-30); Chloride 101 mmol/L (98-107); Estimated Glomerular Filt Rate > 60; Glucose 126 mg/dL (75-110); Sodium 138 mmol/L (137-145)
[2021-02-13 15:52] VITALS: BP 136/69; PULSE 64; RESP 13; O2SAT 98
[2021-02-13 16:04] LABS: Add Urine Microscopic? NO; Appearance Urine Clear (Clear); Bilirubin Urine Negative (Negative); Blood Urine Negative (Negative); Color Urine Yellow (Yellow); Glucose Urine UA Negative (Negative); Ketones Urine Negative (Negative); Leukocyte Esterase Ur Negative LEU/UL (Negative); Nitrate Urine Negative (Negative); Protein Urine Negative (Negative); Specific Grav Ur 1.012 (1.001-1.035); Urobilinogen Urine Negative mg/dL (<2.0)
--- NOTE | 2021-02-13 16:41 | PCCCNOTE ---
Care Coordination spoke with pt's Charity Atkins about her concern that pt will need to leave [place] after therapy complete and she is unable to care for him due to his dementia. Gave list of Memory Care facilities in area. 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 would like care coordination to call her at [phone] or e-mail her at [email or web address] any other Memory Care facilities with in 1-2 hours distance.
--- NOTE | 2021-02-13 16:54 | PC.NURSE ---
made contact with [facility] to transfer patient back to [facility]. company declined. made contact with [employer] they accepted with a [facility]. a truck is on their way
[2021-02-13 17:15] VITALS: BP 136/54; PULSE 63; RESP 18; O2SAT 96
[2021-02-13 17:17] VITALS: BP 136/54; PULSE 63; RESP 18; O2SAT 96
== END 2021-02-13 17:15 ==
PROVIDERS: Emergency Medicine; Emergency Provider Emergency Medicine; PCP Internal Medicine
DX: S39.92XA Unspecified injury of lower back, initial encounter (principal); I25.10 Atherosclerotic heart disease of native coronary artery without angina pectoris; F03.90 Unspecified dementia, unspecified severity, without behavioral disturbance, psychotic disturbance, mood disturbance, and anxiety; K21.9 Gastro-esophageal reflux disease without esophagitis; M19.90 Unspecified osteoarthritis, unspecified site; I25.2 Old myocardial infarction; Z87.440 Personal history of urinary (tract) infections; Z95.5 Presence of coronary angioplasty implant and graft; H26.9 Unspecified cataract; I44.0 Atrioventricular block, first degree; I45.10 Unspecified right bundle-branch block; M48.10 Ankylosing hyperostosis [Forestier], site unspecified; M47.815 Spondylosis without myelopathy or radiculopathy, thoracolumbar region; W19.XXXA Unspecified fall, initial encounter
CPT/HCPCS: 36415; 51701; 70450; 72128; 72131; 80053; 81003; 85025; 93005; 99284